=== PATIENT | male | born 1995 | race Caucasian/White ===

== ENCOUNTER 2022-03-26 18:18 | Emergency (ER) | payer SELFPAY ==
[~2022-03-26] VITALS: Ht 175.3 cm; Wt 89.0 kg
[2022-03-26] MEDS ORDERED: IBUPROFEN 400MG TABLET PO ONE (21:00)
[2022-03-26] MEDS ORDERED: FLUORESCEIN SODIUM 1MG/STRIP RIGHTEYE ONE (21:00)
[2022-03-26] MEDS ORDERED: TETRACAINE 0.5% OPHTH DROPS 4ML RIGHTEYE ONE (21:00)
[2022-03-26 21:14] VITALS: BP 179/109
[2022-03-26] MEDS ORDERED: ERYT1OIN6 RIGHTEYE (21:50)
[2022-03-26] MEDS ORDERED: CEPH500C2 MT (21:50)
[2022-03-26] MEDS ORDERED: IBUP-2028 MT (21:50)
== END 2022-03-26 22:09 | disposition home or self-care (01) ==
LOC: ER 18:32
DX: H00.012 Hordeolum externum right lower eyelid (principal); H57.11 Ocular pain, right eye
CPT/HCPCS: 99283